=== PATIENT | male | born 1975 | race Hispanic/Latino ===

== ENCOUNTER 2017-07-24 20:11 | Emergency (ER) | payer SELFPAY ==
[~2017-07-24 20:11] MED LIST: ACET-2247 PO; FENO145T PO; LISI2.5T2 PO; METF500T6 PO
== END 2017-07-24 20:52 | disposition home or self-care (01) ==
LOC: EDH 20:11
DX: G51.0 Bell's palsy (principal); Z72.0 Tobacco use